=== PATIENT | male | born 1945 | race Caucasian/White ===

== ENCOUNTER → 2021-05-15 14:35 | Outpatient (CLI) | payer OTHER, SELFPAY ==
--- NOTE | 2021-05-15 15:39 | DI.ECHO.S_ITS ---
[facility] +---------+ : : [address] : : : : [place] : : : : [id number] : : : : Phone: [phone] +---------+ Echocardiogram Report + + :Name: MIR FERRER Study Date: 05/15/2021 Height: 73 in : :[facility] ReadingLocation: Weight: 212 lb : : Gender: Male BSA: 2.2 m2 : :: 1945 Age: 75 yrs BP: 145/68 mmHg: :Reason For Study: ISCHEMIC HEART DISEASE : :Ordering Physician: WON, : :JASON Ribera Performed By: Karlene Banerjee : :Referring: JASON UPTON : + + Interpretation Summary The left ventricle is normal in size. Apical hypertrophy is present. Septum is mildly thickened. The left ventricle is hyperdynamic. The ejection fraction is estimated to be 75-80%. 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 The right ventricle is normal in size and function. No significant valvular pathology seen. Consider cardiac MRI for further evaluation of apical hypertrophy which may be a variant of hypertrophic cardiomyopathy. Mild atherosclerotic plaque(s) in the aortic arch. Procedure: A two-dimensional transthoracic echocardiogram with color flow and Doppler was performed. The study quality was technically adequate. A contrast injection of Definity was performed to improve assessment of LV function. The patient was in sinus bradycardia with heart rates between 55-62 bpm during the exam. Left Ventricle: The left ventricle is normal in size. Apical hypertrophy is present. Septum is mildly thickened. There is no thrombus. The ejection fraction is estimated to be 75-80%. The left ventricle is hyperdynamic. There are no focal wall motion abnormalities. MV E/A: 0.95 Med Peak E' Mu: 3.2 cm/sec E/E' med: 20.0. Right Ventricle: The right ventricle is normal in size and function. Atria: The left atrium is moderately dilated. Right atrial size is normal. There is no Doppler evidence for an interatrial shunt. Mitral Valve: There is mild mitral annular calcification. No systolic anterior motion of the mitral valve. There is trace mitral regurgitation. Aortic Valve: The aortic valve is trileaflet. The aortic valve opens well. The aortic valve is slightly calcified. There is no aortic valve stenosis. No aortic regurgitation is present. Tricuspid Valve: The tricuspid valve is normal in structure and function. There is trace tricuspid regurgitation. Pulmonary artery pressures cannot be estimated because of the lack of a measurable TR jet velocity. Pulmonic Valve: The pulmonic valve leaflets are thin and pliable; valve motion is normal. There is trace pulmonic regurgitation. Great Vessels: The aortic root is normal size. The dimensions of the ascending aorta are normal. Mild atherosclerotic plaque(s) in the aortic arch. The inferior vena cava was not well visualized. Pericardium/ Pleura There is an anterior echo-free space consistent with a fat pad. There is no pleural effusion. MMode/2D Measurements & Calculations LVIDd: 5.7 cm LVOT diam: 2.0 cm LVIDs: 3.5 cm Ao root diam: 3.9 cm FS: 39.0 % asc Aorta Diam: 3.2 cm IVSd: 0.98 cm Ao Arch Diam (Prox Trans): 3.1 cm LVPWd: 0.94 cm LV liao. diameter/BSA (cm/m^2): 2.6 LV sys. diameter/BSA (cm/m^2): 1.6 LA A2 area: 27.0 cm2 RA long axis: 5.4 cm LA A4 area: 23.7 cm2 RA area: 15.9 cm2 LA length (vol): 5.8 cm RA vol: 40.3 ml LA vol: 93.9 ml RA : 18.3 ml/m2 LA vol index: 42.6 ml/m2 RVD1 (basal): 3.2 cm TAPSE: 2.8 cm Doppler Measurements & Calculations Ao V2 max: 132.2 cm/sec LVOT Max Mu: 114.6 cm/sec Ao V2 mean: 95.5 cm/sec LV V1 max P.3 mmHg Ao max P.0 mmHg LV V1 VTI: 22.8 cm Ao mean P.1 mmHg KENDELL(I,D): 2.5 cm2 Ao V2 VTI: 28.7 cm KENDELL(V,D): 2.8 cm2 sev ratio: 0.79 KENDELL indexed to BSA (cm^2/m^2): 1.1 MV E max mu: 63.3 cm/sec PA V2 max: 115.8 cm/sec MV A max mu: 66.5 cm/sec PA V2 mean: 82.9 cm/sec MV E/A: 0.95 PA mean P.0 mmHg Med Peak E' Mu: 3.2 cm/sec PA pr(Accel): 29.3 mmHg E/E' med: 20.0 Lat Peak E' Mu: 5.9 cm/sec E/E' lat: 10.6 E/e' average: 15.3 MV dec time: 0.25 sec SV(OT): 72.7 ml Reading Physician:06:24 PM
== END ==
PROVIDERS: Referring Provider Family Medicine; Visit Provider Family Medicine
DX: I24.9 Acute ischemic heart disease, unspecified (principal); I70.0 Atherosclerosis of aorta
CPT/HCPCS: 93306; Q9957